=== PATIENT | male | born 1995 | race Hispanic/Latino ===

== ENCOUNTER 2017-05-10 18:04 | Emergency (ER) | payer OTHER ==
[~2017-05-10] VITALS: Ht 182.9 cm; Wt 104.5 kg
[2017-05-10 18:05] VITALS: BP 135/80
[2017-05-10] MEDS ORDERED: NAPR500T PO (18:14)
--- NOTE | 2017-05-10 18:49 | REP ---
Clinical: Trauma. Technique: AP, lateral, bilateral oblique views left third digit. Findings: The osseous structures and joint spaces are intact and normal. There is no evidence for acute fracture or dislocation. Surrounding soft tissues are unremarkable. No subcutaneous emphysema or radiodense foreign body. Impression: No acute fracture or dislocation. Signed by Wilfred Thompson MD 05/10/2017 06:40 P
== END 2017-05-10 19:35 | disposition home or self-care (01) ==
LOC: M ED 18:04
DX: S60.032A Contusion of left middle finger without damage to nail, initial encounter (principal); S60.413A Abrasion of left middle finger, initial encounter; W22.8XXA Striking against or struck by other objects, initial encounter; Y92.89 Other specified places as the place of occurrence of the external cause; Y93.89 Activity, other specified; Y99.1 Military activity